=== PATIENT | female | born 1970 | race African-American/Black ===

== ENCOUNTER 2018-03-25 10:27 | Emergency (ER) | payer MEDICARE, MEDICAID ==
[2018-03-25] MEDS ORDERED: Morphine 2 MG/ML SYRINGE ONE (10:52)
[2018-03-25] MEDS ORDERED: Ketorolac Tromethamine 30 MG/ML VIAL ONE (10:52)
--- NOTE | 2018-03-25 12:12 | CT ---
CT CHEST WITH IV CONTRAST: Date: 03/25/18 PROVIDED CLINICAL HISTORY: Chest pain. Status post injury. FINDINGS: The heart, pericardium, and great vessels demonstrate no evidence for traumatic abnormality. Minimal vascular calcification, including coronary calcium, is demonstrated. The lungs are free of significant opacity. The airway appears normal and normal caliber. There is no pleural fluid or pneumothorax apparent. The osseous structures demonstrate no acute findings. Visualized portions of the upper abdomen demonstrate no acute process. Peripheral nodular contour of the liver suggests the possibility of cirrhosis. Changes of prior cholecystectomy are seen. IMPRESSION: No evidence for an acute process. Chronic findings as above. POS: [facility]
[2018-03-25] MEDS ORDERED: ISOVUE-370 76%-LOCM 1 ML ONE (16:53)
== END 2018-03-25 13:02 | disposition home or self-care (01) ==
LOC: ERS 10:27
DX: S20.212A Contusion of left front wall of thorax, initial encounter (principal); I10 Essential (primary) hypertension; E11.9 Type 2 diabetes mellitus without complications; Z87.891 Personal history of nicotine dependence; Z79.899 Other long term (current) drug therapy; W18.30XA Fall on same level, unspecified, initial encounter
CPT/HCPCS: 70360; 71260; 96374; 96375; J1885; J2270

== ENCOUNTER 2018-03-25 23:30 | Emergency (ER) | payer MEDICARE, MEDICAID ==
--- NOTE | 2018-03-26 08:41 | RAD ---
TWO VIEW SOFT TISSUE NECK SERIES: INDICATION: Fall with tightness to throat, difficulty swallowing with pain. FINDINGS: No abnormal thickening of the prevertebral soft tissues. No abnormal distention of the hypopharyngea l airway. The imaged tracheal air column is patent. The epiglottis is effaced by the tongue base, b ut otherwise not discernibly thickened. IMPRESSION: 1. No significant abnormal thickening of the prevertebral soft tissues. 2. Tongue base does efface portions of the epiglottis which limits assessment in this regard. As ne cessary, imaging followup may be obtained. POS: [facility]
== END 2018-03-26 00:35 | disposition home or self-care (01) ==
LOC: ERS 23:30
DX: M54.2 Cervicalgia (principal); E11.9 Type 2 diabetes mellitus without complications; I10 Essential (primary) hypertension; Z87.891 Personal history of nicotine dependence; Z79.899 Other long term (current) drug therapy
CPT/HCPCS: 70360

== ENCOUNTER 2018-06-16 20:02 | Emergency (ER) | payer MEDICARE, MEDICAID | END 2018-06-16 21:16 | disposition home or self-care (01) | LOC: ERS 20:02 | DX: J11.1 Influenza due to unidentified influenza virus with other respiratory manifestations (principal); E11.9 Type 2 diabetes mellitus without complications; I10 Essential (primary) hypertension; F41.9 Anxiety disorder, unspecified; Z87.891 Personal history of nicotine dependence; Z79.899 Other long term (current) drug therapy; Z79.4 Long term (current) use of insulin | CPT/HCPCS: 87804; 99283 ==